=== PATIENT | male | born 1980 | race Caucasian/White ===

== ENCOUNTER → 2019-06-07 | Outpatient (CLI) | payer OTHER ==
--- NOTE | 2019-06-07 16:56 | RAD ---
EXAM: Supine AP view of the abdomen DATE: 06/07/2019 12:00 AM INDICATION: Evaluate for renal calculus. COMPARISON: No Prior FINDINGS: No abnormal small or large bowel dilatation. Moderate to large volume colonic stool content. No abnormal soft tissue mass effect. Within the limitations of overlying bowel gas and stool, no definite renal calculus is seen. Evaluation for free intraperitoneal gas is limited on this supine exam. IMPRESSION: 1. No evidence for bowel obstruction. 2. No definite renal calculus is seen. 3. Moderate to large right colonic stool content is seen. Electronically signed by: Matt Vasquez MD (06/07/2019 4:53 PM) [facility]
== END | disposition home or self-care (01) ==
LOC: RAD 15:18
PROVIDERS: ATTEND Urology
DX: R19.5 Other fecal abnormalities (principal)
CPT/HCPCS: 74018